=== PATIENT | male | born 1975 | race Caucasian/White ===

== ENCOUNTER → 2017-05-09 | Outpatient (CLI) | payer BC ==
[~2017-05-09] VITALS: Ht 165.1 cm; Wt 52.3 kg
[2017-05-09 15:40] VITALS: BP 163/111
== END ==
LOC: LAB 06:28 → RAD 06:28 → AMSURD 06:28
DX: E07.89 Other specified disorders of thyroid (principal); F17.200 Nicotine dependence, unspecified, uncomplicated; Z13.6 Encounter for screening for cardiovascular disorders; Z13.1 Encounter for screening for diabetes mellitus

== ENCOUNTER → 2017-06-21 | Outpatient (CLI) | payer BC ==
[2017-05-09 15:40] VITALS: BP 163/111
== END ==
LOC: LAB 10:53
DX: E07.89 Other specified disorders of thyroid (principal)

== ENCOUNTER → 2018-08-27 | Outpatient (CLI) | payer OTHER ==
[2017-05-09 15:40] VITALS: BP 163/111
[2018-08-27 21:08] LABS: CALCIUM 9.4 mg/dL (8.4-10.2); POTASSIUM 3.9 mmol/L (3.6-5.0)
== END ==
LOC: LAB 15:54
PROVIDERS: Family Medicine
DX: E03.9 Hypothyroidism, unspecified (principal); I10 Essential (primary) hypertension

== ENCOUNTER → 2019-02-03 | Outpatient (CLI) | payer OTHER ==
[2017-05-09 15:40] VITALS: BP 163/111
== END ==
LOC: LAB 16:37
PROVIDERS: Family Medicine
DX: E07.89 Other specified disorders of thyroid (principal)

== ENCOUNTER → 2019-07-30 | Outpatient (CLI) | payer OTHER ==
[2017-05-09 15:40] VITALS: BP 163/111
[2019-07-30 15:23] LABS: POTASSIUM 3.6 mmol/L (3.5-5.1)
[2019-07-30 15:25] LABS: CALCIUM 9.6 mg/dL (8.3-10.5)
== END ==
LOC: LAB 14:56
PROVIDERS: Family Medicine
DX: Z13.1 Encounter for screening for diabetes mellitus (principal); Z13.6 Encounter for screening for cardiovascular disorders; I10 Essential (primary) hypertension; E07.89 Other specified disorders of thyroid

== ENCOUNTER → 2019-10-19 | Outpatient (CLI) | payer OTHER ==
[2017-05-09 15:40] VITALS: BP 163/111
== END ==
LOC: LAB 15:39
DX: R73.9 Hyperglycemia, unspecified (principal)

== ENCOUNTER → 2020-11-23 | Outpatient (CLI) | payer OTHER ==
[2017-05-09 15:40] VITALS: BP 163/111
[2020-11-23 16:54] LABS: CALCIUM 7.3 mg/dL (8.3-10.5)
[2020-11-23 17:05] LABS: POTASSIUM 3.7 mmol/L (3.5-5.1)
== END ==
LOC: LAB 15:55
PROVIDERS: Family Medicine
DX: E07.9 Disorder of thyroid, unspecified (principal); I10 Essential (primary) hypertension

== ENCOUNTER → 2020-12-13 | Outpatient (CLI) | payer OTHER ==
[2017-05-09 15:40] VITALS: BP 163/111
== END ==
LOC: RAD 09:00
DX: I65.23 Occlusion and stenosis of bilateral carotid arteries (principal); R91.1 Solitary pulmonary nodule

== ENCOUNTER → 2020-12-14 | Outpatient (CLI) | payer OTHER ==
[2017-05-09 15:40] VITALS: BP 163/111
== END ==
LOC: RAD 15:40
DX: I65.29 Occlusion and stenosis of unspecified carotid artery (principal); R91.1 Solitary pulmonary nodule; Z85.21 Personal history of malignant neoplasm of larynx
CPT/HCPCS: Q9967

== ENCOUNTER → 2020-12-17 | Outpatient (CLI) | payer OTHER ==
[2017-05-09 15:40] VITALS: BP 163/111
== END ==
LOC: LAB 07:12
DX: I65.29 Occlusion and stenosis of unspecified carotid artery (principal)

== ENCOUNTER → 2020-12-29 | Outpatient (CLI) | payer OTHER ==
[2017-05-09 15:40] VITALS: BP 163/111
== END ==
LOC: RAD 15:41
DX: I65.21 Occlusion and stenosis of right carotid artery (principal); I67.2 Cerebral atherosclerosis
CPT/HCPCS: Q9967

== ENCOUNTER → 2021-04-01 | Outpatient (CLI) | payer OTHER ==
[2017-05-09 15:40] VITALS: BP 163/111
[2021-04-01 09:36] LABS: ALBUMIN 4.4 g/dL (3.5-5.0)
[2021-04-01 09:39] LABS: TOTAL PROTEIN 7.3 g/dL (6.4-8.3)
[2021-04-01 09:41] LABS: TOTAL BILIRUBIN 0.3 mg/dL (0.2-1.2)
[2021-04-01 09:44] LABS: DIRECT BILIRUBIN 0.2 mg/dL (0.0-0.5)
== END ==
LOC: LAB 07:05
PROVIDERS: Family Medicine
DX: I65.29 Occlusion and stenosis of unspecified carotid artery (principal)

== ENCOUNTER → 2022-04-21 | Outpatient (CLI) | payer OTHER ==
[2022-04-21 11:16] LABS: ALBUMIN 4.3 g/dL (3.5-5.0)
[2022-04-21 11:18] LABS: TOTAL PROTEIN 7.2 g/dL (6.4-8.3)
[2022-04-21 11:20] LABS: TOTAL BILIRUBIN 0.3 mg/dL (0.2-1.2)
[2022-04-21 11:24] LABS: DIRECT BILIRUBIN 0.1 mg/dL (0.0-0.5)
== END ==
LOC: LAB 07:16
PROVIDERS: Family Medicine
DX: I65.29 Occlusion and stenosis of unspecified carotid artery (principal); E07.9 Disorder of thyroid, unspecified

== ENCOUNTER → 2024-05-05 | Outpatient (CLI) | payer BC ==
[~2024-05-05] MED LIST: Iohexol 350 - 100 ML VIAL IV ONE; NS 100 ML IV ONE
== END ==
LOC: LAB 09:20
DX: I10 Essential (primary) hypertension (principal); E07.9 Disorder of thyroid, unspecified; E78.5 Hyperlipidemia, unspecified; I65.29 Occlusion and stenosis of unspecified carotid artery; R91.1 Solitary pulmonary nodule
CPT/HCPCS: Q9967

== ENCOUNTER → 2024-07-22 | Outpatient (CLI) | payer BC | LOC: RAD 10:41 → VAS 10:41 → RAD 11:00 | DX: I65.23 Occlusion and stenosis of bilateral carotid arteries (principal) ==